=== PATIENT | female | born 1985 | race Caucasian/White ===

== ENCOUNTER → 2017-12-03 | Outpatient (CLI) | payer OTHER ==
[~2017-12-03] MED LIST: ACEASPCAF PO; ACET500 PO; ACYC800 PO; ALBU90I INH; AZIT250 PO; BENTYL10 MG PO; BENTYL20 MG PO; CRUTCH4 USE; CYCL10 PO; Ciprodex Otic7.5 ML RIGHTEAR; Cyclobenzaprine5 MG PO; DEPO; DIPH50 PO; DOXY100 PO; Daypro600 MG PO; Excedrin Extra1 EACH PO; GABA300 PO; GUAI600ER PO; HYDACE5 PO; HYDGUAL120 PO; HYDPAM50 PO; IBUP200; IBUP200 PO; IBUP600; IBUP600 PO; IBUP800 PO; Keflex500 MG PO; MEDR150I; MEDR150I IM; MELO7.5 PO; META800 PO; METO10 PO; METPRE4DP PO; METR500 PO; MULVITMINE PO; Mobic15 MG PO; NAPR375 PO; NAPR500; NAPR500 PO; NAPROXEN; NEOCOLOTSU OT; OXYACE5T PO; PENVK250 PO; PENVK500 PO; PHENA200 PO; PREG50 PO; PROACE100 PO; PROC5 PO; PROCODE120 PO; PROM25 PO; PYRI100 PO; Pepcid40 MG PO; Percocet 5-3251 EACH PO; Phenergan25 M1 PO; Prednisone20 MG PO; Prilosec Otc20 MG PO; ROPI2 PO; RXHYDACE PO; RXTRAM50 PO; Robaxin500 MG PO; SUCR1 PO; SULTRIDS PO; TRAM50 PO; TRAZ50 PO; TYLENOL PRN; Ultram50 MG PO; VALA500 PO; VARE1 PO; VITAMENS; Verotin-Gr Cap1 EACH PO; ZOSTAVAX V19400 UNIT SQ; Zantac150 MG PO; Zithromax250 MG PO; Zofran Odt4 MG SL; Zovirax800 MG PO; [UNRECOGNIZED DRUG - OTHER]; [UNRECOGNIZED DRUG - REMARK]
== END ==
LOC: LAB SHORT 13:48
DX: Z34.03 Encounter for supervision of normal first pregnancy, third trimester (principal)
CPT/HCPCS: 87081; 87653

== ENCOUNTER 2017-12-21 09:25 | Inpatient (IN) | payer OTHER ==
[~2017-12-21] VITALS: Ht 175.3 cm; Wt 67.0 kg
[~2017-12-21 09:25] MED LIST changes: -Percocet 5-3251 EACH PO; -Verotin-Gr Cap1 EACH PO
[2017-12-21 10:49] LABS: BASOPHILS ABSOLUTE AUTO 0.01 K/mm3 (0.00-0.23); BASOPHILS PERCENT AUTO 0 % (0-2); EOSINOPHILS ABSOLUTE AUTO 0.07 K/mm3 (0.00-0.68); EOSINOPHILS PERCENT AUTO 1 % (0-6); Hematocrit 34.5 % (33.0-51.0); IMMATURE GRAN ABSOLUTE AUTO 0.11 K/mm3 (0.00-0.10); IMMATURE GRAN PERCENT AUTO 1 % (0-1); LYMPHOCYTES ABSOLUTE AUTO 1.94 K/mm3 (0.84-5.20); LYMPHOCYTES PERCENT AUTO 15 % (21-46); MONOCYTES ABSOLUTE AUTO 0.74 K/mm3 (0.16-1.47); MONOCYTES PERCENT AUTO 6 % (4-13); Mean Corpuscular HGB 31.9 pg (26.0-34.0); Mean Corpuscular HGB Conc 34.8 g/dL (31.5-36.5); Mean Corpuscular Volume 92 fL (80-100); NEUTROPHILS ABSOLUTE AUTO 10.36 K/mm3 (1.96-9.15); NEUTROPHILS PERCENT AUTO 78 % (41-73); Platelet Count 365 K/mm3 (150-400); RDW Coefficient Variation 13.8 % (11.7-14.2); RDW Standard Deviation 46.5 fL (35.1-46.3); Red Blood Cell Count 3.76 M/mm3 (3.80-5.20); White Blood Cell Count 13.23 K/mm3 (4.00-11.30)
[2017-12-21 11:00] LABS: U Amphetamine Screen Not Detected; U Barbituate Screen Not Detected; U Benzodiazapine Screen Not Detected; U Buprenorphine Screen Not Detected; U Cannabinoids Screen Not Detected; U Cocaine Screen Not Detected; U Methadone Screen Not Detected; U Methamphetamine Screen Not Detected; U Opiates Screen Not Detected; U Oxycodone Screen Not Detected; U Phencyclidine Screen Not Detected; U Propoxyphene Screen Not Detected
[2017-12-21 13:54] LABS: PCO2 Cord - Venous 43.2 mmHg (40-50); pH Umbilical Cord - Venous 7.35 (7.26-7.35)
[2017-12-22 06:23] LABS: Hemoglobin 10.4 g/dL (11.5-16.0); Mean Corpuscular HGB 31.8 pg (26.0-34.0); Mean Corpuscular HGB Conc 34.7 g/dL (31.5-36.5); Mean Corpuscular Volume 92 fL (80-100); Mean Platelet Volume 9.7 fL (9.1-12.4); Platelet Count 334 K/mm3 (150-400); RDW Coefficient Variation 13.5 % (11.7-14.2); RDW Standard Deviation 45.6 fL (35.1-46.3); Red Blood Cell Count 3.27 M/mm3 (3.80-5.20); White Blood Cell Count 17.75 K/mm3 (4.00-11.30)
[2017-12-23] MEDS ORDERED: Percocet 5-3251 EACH PO (13:49)
[2017-12-23] MEDS ORDERED: Verotin-Gr Cap1 EACH PO (13:49)
== END 2017-12-23 15:00 | disposition home or self-care (01) | DRG 766 ==
LOC: BC 09:25
PROVIDERS: Obstetrics & Gynecology
PROC: 10D00Z1 Extraction of Products of Conception, Low, Open Approach (ICD-10-PCS; principal; 2017-12-21 12:00)
DX: O36.5930 Maternal care for other known or suspected poor fetal growth, third trimester, not applicable or unspecified (principal); F17.200 Nicotine dependence, unspecified, uncomplicated; O34.211 Maternal care for low transverse scar from previous cesarean delivery; O69.81X0 Labor and delivery complicated by cord around neck, without compression, not applicable or unspecified; O99.334 Smoking (tobacco) complicating childbirth; Z3A.38 38 weeks gestation of pregnancy; Z37.0 Single live birth
CPT/HCPCS: 36415; 82803; 85025; 85027; 86850; 86900; 86901; 88307; 94660; J0330; J0690; J0694; J0697; J1100; J1885; J2270; J2405; J2590; J2710; J2765; J3010; J7120

== ENCOUNTER 2019-08-03 10:04 | Emergency (ER) | payer OTHER ==
[~2019-08-03] VITALS: Ht 175.3 cm; Wt 57.1 kg
[~2019-08-03 10:04] MED LIST changes: +Percocet 5-3251 EACH PO; +Verotin-Gr Cap1 EACH PO
[2019-08-03] MEDS ORDERED: Bactrim Ds Tab1 EACH PO (10:21)
[2019-08-03] MEDS ORDERED: Ultram50 MG PO (10:21)
== END 2019-08-03 10:31 | disposition home or self-care (01) ==
LOC: ER 10:04
DX: L03.031 Cellulitis of right toe (principal); Z88.0 Allergy status to penicillin; Z88.8 Allergy status to other drugs, medicaments and biological substances; Z79.891 Long term (current) use of opiate analgesic; Z79.899 Other long term (current) drug therapy; F17.200 Nicotine dependence, unspecified, uncomplicated
CPT/HCPCS: 99282

== ENCOUNTER 2019-08-17 17:47 | Emergency (ER) | payer OTHER ==
[~2019-08-17] VITALS: Ht 175.3 cm; Wt 56.2 kg
[~2019-08-17 17:47] MED LIST changes: +Bactrim Ds Tab1 EACH PO
[2019-08-17 18:12] LABS: Source, Urine Clean Catch
[2019-08-17 18:20] LABS: BASOPHILS ABSOLUTE AUTO 0.03 K/mm3 (0.00-0.23); BASOPHILS PERCENT AUTO 0 % (0-2); EOSINOPHILS ABSOLUTE AUTO 0.09 K/mm3 (0.00-0.68); EOSINOPHILS PERCENT AUTO 1 % (0-6); Hematocrit 36.6 % (33.0-51.0); Hemoglobin 12.4 g/dL (11.5-16.0); IMMATURE GRAN ABSOLUTE AUTO 0.02 K/mm3 (0.00-0.10); IMMATURE GRAN PERCENT AUTO 0 % (0-1); LYMPHOCYTES ABSOLUTE AUTO 2.92 K/mm3 (0.84-5.20); LYMPHOCYTES PERCENT AUTO 33 % (21-46); MONOCYTES ABSOLUTE AUTO 0.59 K/mm3 (0.16-1.47); MONOCYTES PERCENT AUTO 7 % (4-13); Mean Corpuscular HGB 31.4 pg (26.0-34.0); Mean Corpuscular HGB Conc 33.9 g/dL (31.5-36.5); Mean Corpuscular Volume 93 fL (80-100); Mean Platelet Volume 9.6 fL (9.1-12.4); NEUTROPHILS PERCENT AUTO 59 % (41-73); Platelet Count 385 K/mm3 (150-400); RDW Coefficient Variation 13.2 % (11.7-14.2); RDW Standard Deviation 45.2 fL (35.1-46.3); Red Blood Cell Count 3.95 M/mm3 (3.80-5.20); White Blood Cell Count 8.95 K/mm3 (4.00-11.30)
[2019-08-17 18:27] LABS: Appearance, Urine Clear (Clear); Blood, Urine 1+ (Neg); Color, Urine Yellow (P-Yellow); Glucose Qualitative, Urine Neg (Neg); Ketones, Urine 1+ (Neg); Leukocyte Esterase, Urine 1+ (Neg); Nitrite, Urine Neg (Neg); Protein, Urine 2+ (Neg); Specific Gravity, Urine 1.025 (1.003-1.022); Urobilinogen, Urine 1+ (Normal)
[2019-08-17 18:37] LABS: Alanine Aminotransfer (ALT/SGP 13 U/L (12-78); Albumin, Blood 4.1 g/dL (3.4-5.0); Albumin/Globulin Ratio 1.4 (0.8-1.8); Alk Phos 50 U/L (50-136); Anion Gap 5 mmol/L (6-16); Aspartate Aminotrans (AST/SGOT 23 U/L (12-37); Bilirubin, Total 0.4 mg/dL (0.1-1.0); Blood Urea Nitrogen 10 mg/dL (8-24); Bun/Creatinine Ratio 15.1 (12.0-20.0); CO2, Blood 22 mmol/L (21-32); Calcium, Blood 9.2 mg/dL (8.5-10.1); Chloride, Blood 110 mmol/L (98-108); Creatinine, Blood 0.66 mg/dL (0.40-1.00); Globulin, Blood 2.9 g/dL (2.2-4.0); Glomerular Filtration Rate >60 (60-); Glucose, Blood 130 mg/dL (70-99); Potassium, Blood 4.1 mmol/L (3.5-5.5); Sodium, Blood 137 mmol/L (136-145)
[2019-08-17 19:28] LABS: Bilirubin, Urine 1+ (Neg)
[2019-08-17 19:31] LABS: Bacteria Few /hpf; Red Blood Cells, Urine 0-2 /hpf (0-2); Squamous Epithelial Cells Rare /hpf (Few)
[2019-08-17 19:32] LABS: Calcium Oxalate Crystals Many /hpf; Mucus Light (0-Heavy)
== END 2019-08-17 21:06 | disposition home or self-care (01) ==
LOC: ER 17:47
PROVIDERS: Physician Assistant
DX: K92.2 Gastrointestinal hemorrhage, unspecified (principal); Z88.0 Allergy status to penicillin; Z88.8 Allergy status to other drugs, medicaments and biological substances; Z79.899 Other long term (current) drug therapy; Z79.891 Long term (current) use of opiate analgesic; F17.200 Nicotine dependence, unspecified, uncomplicated
CPT/HCPCS: 36415; 74176; 80053; 81001; 81025; 82272; 85025; 86850; 86900; 86901; 99284-25

== ENCOUNTER 2020-04-07 16:32 | Inpatient (IN) | payer OTHER ==
[~2020-04-07] VITALS: Ht 175.3 cm; Wt 54.4 kg
[~2020-04-07 16:32] MED LIST changes: +Cleocin HCl150 MG PO
[2020-04-07 18:04] LABS: BASOPHILS ABSOLUTE AUTO 0.03 K/mm3 (0.00-0.23); BASOPHILS PERCENT AUTO 0 % (0-2); EOSINOPHILS ABSOLUTE AUTO 0.01 K/mm3 (0.00-0.68); EOSINOPHILS PERCENT AUTO 0 % (0-6); Hematocrit 34.3 % (33.0-51.0); Hemoglobin 11.4 g/dL (11.5-16.0); IMMATURE GRAN ABSOLUTE AUTO 0.09 K/mm3 (0.00-0.10); IMMATURE GRAN PERCENT AUTO 1 % (0-1); LYMPHOCYTES ABSOLUTE AUTO 1.25 K/mm3 (0.84-5.20); LYMPHOCYTES PERCENT AUTO 7 % (21-46); MONOCYTES ABSOLUTE AUTO 0.76 K/mm3 (0.16-1.47); MONOCYTES PERCENT AUTO 4 % (4-13); Mean Corpuscular HGB 30.5 pg (26.0-34.0); Mean Corpuscular HGB Conc 33.2 g/dL (31.5-36.5); Mean Corpuscular Volume 92 fL (80-100); Mean Platelet Volume 9.5 fL (9.1-12.4); NEUTROPHILS ABSOLUTE AUTO 16.69 K/mm3 (1.96-9.15); NEUTROPHILS PERCENT AUTO 89 % (41-73); Platelet Count 303 K/mm3 (150-400); RDW Coefficient Variation 12.1 % (11.7-14.2); RDW Standard Deviation 41.1 fL (35.1-46.3); Red Blood Cell Count 3.74 M/mm3 (3.80-5.20); White Blood Cell Count 18.83 K/mm3 (4.00-11.30)
[2020-04-07 18:28] LABS: Alanine Aminotransfer (ALT/SGP 16 U/L (12-78); Albumin, Blood 3.6 g/dL (3.4-5.0); Albumin/Globulin Ratio 1.3 (0.8-1.8); Alk Phos 65 U/L (50-136); Anion Gap 7 mmol/L (6-16); Aspartate Aminotrans (AST/SGOT 17 U/L (12-37); Bilirubin, Total 0.3 mg/dL (0.1-1.0); Blood Urea Nitrogen 9 mg/dL (8-24); Bun/Creatinine Ratio 11.8 (12.0-20.0); CO2, Blood 24 mmol/L (21-32); Calcium, Blood 8.5 mg/dL (8.5-10.1); Chloride, Blood 108 mmol/L (98-108); Creatinine, Blood 0.76 mg/dL (0.40-1.00); Globulin, Blood 2.7 g/dL (2.2-4.0); Glomerular Filtration Rate >60 (60-); Glucose, Blood 86 mg/dL (70-99); Potassium, Blood 3.7 mmol/L (3.5-5.5); Sodium, Blood 139 mmol/L (136-145); Total Protein, Blood 6.3 g/dL (6.4-8.2)
[2020-04-07] MEDS ORDERED: METHADONE LIQUID PO (19:41)
--- NOTE | 2020-04-07 22:30 | NUR ---
Patient admitted for rt femur fracture. patient arrived in 10 pain. rt leg is externally rotated, with good cap refill, able to wiggle toes, and with good sensation over leg and toes. No visible bruising or scrapes over rt leg. attempted to place the sheffield's traction on the rt leg, however, patient did not tolerate any movement of her rt leg, will attemp again when pain is better controlled. Oreinted to room and call light in reach.
--- NOTE | 2020-04-08 06:15 | NUR ---
Patient's pain is more controlled this am. she is taking pain medication about ever 2.5 hours now, and her pain is a 5/10. she is able to have full conversations and is no longer crying in pain. no acute changes.
--- NOTE | 2020-04-08 17:51 | NUR ---
SHIFT SUMMARY PT A&OX4, VSS, S/P R HIP NAILING, SURGICAL DRESSING INTACT, WIGGLES TOES, REPOSITIONS SELF WELL. PAIN MANAGED PER EMAR. HAYDER PO, DENIES N&V. DIAL PATENT & DRAINING, STAT LOCK ON, OFF FLOOR. WILL REPORT TO ONCOMING NOC RN.
--- NOTE | 2020-04-08 23:28 | NUR ---
VITALS PT'S HR NOTED TO BE DROPPING TO 47-48 WHILE ASLEEP. SBP LOW 100'S. PT REPORTS SBP NORMALLY AROUND 110-115. PT NOT SURE WHAT RESTING HR NORMALLY IS. CALLED DR. WEBB CONCERNING LOW BP AND HR. DR WEBB REPORTS IF SBP DROPS BELOW 80 TO CALL [facility]ITALS[facility]. OTHERWISE, NO NEW ORDERS. BIOX IN PLACE. O2 94-98% ON RA.
--- NOTE | 2020-04-09 04:55 | NUR ---
SHIFT SUMMARY PT IS A/O X4. PT HAS BEEN REPOSITIONED THROUGHOUT THE NIGHT. R LEG ELEVATED ON PILLOWS. PT HAS HAD LOW BP T/O THE SHIFT. HR ALSO LOW WHEN ASLEEP. SEE VITAL HX AND PREVIOUS NOTES. DISCUSSED PAIN MANAGEMENT WITH PT, FRONT OFFICE ATTENDANT, AND DR. WEBB CONCERNING LOW BP. PAIN SEEMS TO BE MANAGED WELL WITH TORADOL AND FLEXERIL, WITH OXYCODONE PRN. 0.5MG DILUADED GIVEN ONCE FOR BREAKTHROUGH PAIN. SEE EMAR FOR DETAILS. BIOX IN PLACE. NO ACUTE CHANGES OVERNIGHT. ASSISTED WITH ADL'S PRN.
[2020-04-09 09:26] LABS: Hematocrit 27.1 % (33.0-51.0); Hemoglobin 8.9 g/dL (11.5-16.0); Mean Corpuscular HGB 31.6 pg (26.0-34.0); Mean Corpuscular HGB Conc 32.8 g/dL (31.5-36.5); Platelet Count 240 K/mm3 (150-400); RDW Coefficient Variation 12.3 % (11.7-14.2); RDW Standard Deviation 43.8 fL (35.1-46.3); Red Blood Cell Count 2.82 M/mm3 (3.80-5.20); White Blood Cell Count 12.76 K/mm3 (4.00-11.30)
[2020-04-09 09:27] LABS: Mean Corpuscular Volume 96 fL (80-100)
[2020-04-09 09:42] LABS: Albumin, Blood 2.6 g/dL (3.4-5.0); Anion Gap 7 mmol/L (6-16); Blood Urea Nitrogen 10 mg/dL (8-24); Bun/Creatinine Ratio 14.2 (12.0-20.0); CO2, Blood 27 mmol/L (21-32); Calcium, Blood 7.9 mg/dL (8.5-10.1); Chloride, Blood 107 mmol/L (98-108); Creatinine, Blood 0.71 mg/dL (0.40-1.00); Glomerular Filtration Rate >60 (60-); Glucose, Blood 119 mg/dL (70-99); Phosphorus, Blood 2.2 mg/dL (2.5-4.9); Potassium, Blood 3.4 mmol/L (3.5-5.5); Sodium, Blood 141 mmol/L (136-145)
--- NOTE | 2020-04-09 10:16 | NUR ---
DR. WEBB WAS NOTIFIED OF LOW BP. DR. GOMEZ CONSULTED FOR LOW BLOOD PRESSURE. IV FLUIDS STARTED. PT EDUCATED THAT SHE CANNONT HAVE HER METHADONE OR PAIN MEDICATION UNTIL HER BP IMPROVES. LABS ORDERED.
--- NOTE | 2020-04-09 17:59 | NUR ---
SHIFT SUMMARY PT IS POD#1 FROM R HIP REPAIR WITH DR. WEBB. PT HAS BEEN QUITE PAINFUL T/O THE DAY, PAIN HAS BEEN MANAGED WITH FLEXERIL, TORADOL AND METHADONE. PT'S BP HAS BEEN LOW T/O THE DAY SO PAIN MEDICATION HAS BEEN USED CAUTIOUSLY. PT IS ASYMPTOMATIC OF LOW BP. PT IS A 2 PERSON MODERATE ASSIST FOR TRANSFERS. PT IS TOLERATING PO WELL. SHE HAS BEEN ABLE TO VOID SINCE HER CATHETER WAS REMOVED. VSS. WILL MONITOR UNTIL REPORT TO ONCOMING RN.
[2020-04-10 04:00] LABS: Hematocrit 26.3 % (33.0-51.0); Hemoglobin 8.1 g/dL (11.5-16.0)
--- NOTE | 2020-04-10 06:04 | NUR ---
SHIFT SUMMARY LYING 1N CHAIR AT BEDSIDE WITH EYES CLOSED. HAS RESTED IN CHAIR WITH DIFFICULTY, HAD BEEN MEDICATED PER EMAR. LOW BP NOTED THROUGHOUT SHIFT, PT STATES THAT SHE DOES NOT KNOW IF THIS IS NORMAL FOR HER SINCE SHE NEVER CHECKS HER BP. HAS BEEN ABLE TO AMBULATE TO BATHROOM WITH MINIMAL ASSISTANCE. DENIES FURTHER NEEDS OR WANTS AT THIS TIME. SAFETY MEASURES IN PLACE. WILL CONTINUE TO MONITOR AND GIVE HAND OFF TO ONCOMING SHIFT USING SBAR DURING BEDSIDE REPORT.
--- NOTE | 2020-04-10 14:48 | NUR ---
PAIN MANAGEMENT PT IS CONTINUING TO HAVE PAIN MANAGEMENT DIFFICULTIES. HER PAIN IS MANAGED WITH TYLENOL AND ADVIL, FLEXERIL AND OXYCODONE HAVE BEEN USED FOR BREAKTHROUGH PAIN. SHE DOES HAVE GAPS IN PAIN MANAGEMENT, CONCERNS ABOUT INCREASING PAIN MEDICATION R/T LOW BP. PT REPORTS HER SBP NORMALLY IS 115. SHE IS ASYMPTOMATIC OF LOW BLOOD PRESSURE. WILL CONTINUE TO MONITOR.
--- NOTE | 2020-04-10 17:57 | NUR ---
SHIFT SUMMARY PT IS POD#2 FROM A R HIP RODDING WITH DR. WEBB. PAIN HAS BEEN AN ISSUE TODAY. PT IS TAKING TYLENOL, ADVIL, FLEXERIL AND OXYCODONE ALTERNATING FOR PAIN MANAGEMENT. PT'S BP HAS BEEN LOW, SHE IS ONLY GETTING SMALL DOSES OF OXYCODONE AND HER ROUTINE METHADONE DOSE. PT IS PAINFUL WITH MOVEMENT BUT IS MOTIVATED. PT WORKED WITH PT TODAY AND IS A 1 PERSON ASSIST WHEN OOB. PLAN FOR PT TO DISCHARGE HOME TOMORROW WHEN FAMILY IS AVALIABLE TO GET HER WALKER AND HER MEDICATIONS FROM HER PHARMACY. PT IS TOLERATING PO AND VOIDING WELL. BP REMAINS LOW AND PT HAS BEEN ASYMPTOMATIC. VSS. WILL MONITOR UNTIL REPORT TO ONCOMING RN.
--- NOTE | 2020-04-11 06:17 | NUR ---
SHIFT SUMMARY POD 3 R HIP RODDING [id number], VSS. DRESSING UNCHAINGED FROM START OF SHIFT. SMALL AMOUNT SS DRAINAGE. PT MEDICATED FOR PAIN PER EMAR. PT STATES TOLERABLE BUT VERY UNCOMFORTABLE. PT ABLE TO AMBULATE TO BATHROOM WITH MINIMAL ASSIST. EDUCATED PT ON IMPORTANCE OF MAINTAINING ADEQUATE PAIN CONTROL. PT TOLERATING PO WELL. DENIES NAUSEA. PLAN TO WORK WITH PT/OT AND DISCHARGE TODAY.
[2020-04-11] MEDS ORDERED: CYCL10 PO (09:11)
[2020-04-11] MEDS ORDERED: ACET500 PO (09:11)
--- NOTE | 2020-04-11 10:14 | NUR ---
PT DISCHARGED WITH DC INSTRUCTIONS INCLUDING 2 HARD COPIES FOR RX FOR OXYCODONE AND FLEXORIL. WALKER RX CALLED BY DR WEBB TO [place], FAMILY AWARE. PT AMBULATED OUTSIDE WITH WALKER ALL THE WAY FROM HER ROOM OUTSIDE TO RIDE WHERE WILL DRIVE HER HOME. RN ESCORT WITH W/C INCASE SHE WANTED TO RIDE, BUT PT INSISTED ON WALKING AND TOLERATED ACT WELL. PT HAD NO IV. BELONGINGS SENT HOME WITH PT. MEDICATED WITH OXY AND METHADONE JUST BEFORE DC PT REQUEST FOR PAIN MANAGEMENT.
== END 2020-04-11 10:01 | disposition home or self-care (01) | DRG 482 ==
LOC: ER 16:32 → SURS 20:24
PROVIDERS: Emergency Medicine; Internal Medicine; ADMIT Orthopaedic Surgery
PROC: 0QH636Z Insertion of Intramedullary Internal Fixation Device into Right Upper Femur, Percutaneous Approach (ICD-10-PCS; principal; 2020-04-08 08:45)
DX: S72.21XA Displaced subtrochanteric fracture of right femur, initial encounter for closed fracture (principal); W00.2XXA Other fall from one level to another due to ice and snow, initial encounter; Y93.89 Activity, other specified; Y92.830 Public park as the place of occurrence of the external cause; Y99.8 Other external cause status; I95.9 Hypotension, unspecified; D50.9 Iron deficiency anemia, unspecified; E83.39 Other disorders of phosphorus metabolism; E87.6 Hypokalemia
CPT/HCPCS: 36415; 71045; 73502; 80053; 80069; 81025; 82607; 82728; 82746; 83540; 83550; 85014; 85018; 85025; 85027; 94762; 96374-59; 96375-59; 97110; 97116; 97162; 99285-25; C1713; C1769; J0171; J0690; J1100; J1170; J1885; J2250; J2405; J2704; J3010; J7030; J7050; J7060; J7120; U0002

== ENCOUNTER 2022-07-23 11:16 | Emergency (ER) | payer OTHER ==
[~2022-07-23] VITALS: Ht 175.3 cm; Wt 70.3 kg
[~2022-07-23 11:16] MED LIST changes: +METHADONE LIQUID PO
[2022-07-23] MEDS ORDERED: HYDR1TAB94 PO (14:15)
== END 2022-07-23 14:45 | disposition home or self-care (01) ==
LOC: ER 11:16
DX: S52.122A Displaced fracture of head of left radius, initial encounter for closed fracture (principal); S52.132A Displaced fracture of neck of left radius, initial encounter for closed fracture; F17.210 Nicotine dependence, cigarettes, uncomplicated; W01.0XXA Fall on same level from slipping, tripping and stumbling without subsequent striking against object, initial encounter
CPT/HCPCS: 29105; 73080; 73562-RT; 99283-25; A9270

== ENCOUNTER 2023-02-10 12:27 | Emergency (ER) | payer OTHER ==
[~2023-02-10] VITALS: Ht 175.3 cm; Wt 72.6 kg
[~2023-02-10 12:27] MED LIST changes: +HYDR1TAB94 PO
[2023-02-10 14:19] VITALS: BP 122/74
== END 2023-02-10 14:15 | disposition home or self-care (01) ==
LOC: ER 12:27
DX: S00.81XA Abrasion of other part of head, initial encounter (principal); G43.909 Migraine, unspecified, not intractable, without status migrainosus; F17.210 Nicotine dependence, cigarettes, uncomplicated; Z88.0 Allergy status to penicillin; Z88.6 Allergy status to analgesic agent; W18.09XA Striking against other object with subsequent fall, initial encounter
CPT/HCPCS: 70486; 96372; 99283-25; J3010

== ENCOUNTER 2023-03-10 09:44 | Emergency (ER) | payer OTHER ==
[~2023-03-10] VITALS: Ht 175.3 cm; Wt 72.6 kg
[2023-03-10 11:24] LABS: BASOPHILS ABSOLUTE AUTO 0.03 K/mm3 (0.00-0.23); BASOPHILS PERCENT AUTO 0 % (0-2); EOSINOPHILS ABSOLUTE AUTO 0.02 K/mm3 (0.00-0.68); EOSINOPHILS PERCENT AUTO 0 % (0-6); Hemoglobin 14.4 g/dL (11.5-16.0); IMMATURE GRAN ABSOLUTE AUTO 0.04 K/mm3 (0.00-0.10); IMMATURE GRAN PERCENT AUTO 0 % (0-1); LYMPHOCYTES ABSOLUTE AUTO 1.71 K/mm3 (0.84-5.20); LYMPHOCYTES PERCENT AUTO 12 % (21-46); MONOCYTES ABSOLUTE AUTO 0.68 K/mm3 (0.16-1.47); MONOCYTES PERCENT AUTO 5 % (4-13); Mean Corpuscular HGB 31.5 pg (26.0-34.0); Mean Corpuscular HGB Conc 35.1 g/dL (31.5-36.5); Mean Corpuscular Volume 90 fL (80-100); NEUTROPHILS ABSOLUTE AUTO 11.82 K/mm3 (1.96-9.15); NEUTROPHILS PERCENT AUTO 83 % (41-73); Platelet Count 400 K/mm3 (150-400); RDW Coefficient Variation 12.7 % (11.7-14.2); RDW Standard Deviation 41.8 fL (35.1-46.3); Red Blood Cell Count 4.57 M/mm3 (3.80-5.20)
[2023-03-10 11:37] LABS: Albumin, Blood 3.9 g/dL (3.4-5.0); Albumin/Globulin Ratio 1.4 (0.8-1.8); Bilirubin, Total 0.4 mg/dL (0.1-1.0); Bun/Creatinine Ratio 8.8 (12.0-20.0); Creatinine, Blood 0.68 mg/dL (0.40-1.00); Globulin, Blood 2.7 g/dL (2.2-4.0); Potassium, Blood 3.4 mmol/L (3.5-5.5); Total Protein, Blood 6.6 g/dL (6.4-8.2)
[2023-03-10 12:30] VITALS: BP 102/63
[2023-03-10] MEDS ORDERED: PROM12.5S PR (14:24)
[2023-03-10] MEDS ORDERED: ONDA4ODT MM (14:24)
[2023-03-10] MEDS ORDERED: FAMO20 PO (14:24)
[2023-03-10] MEDS ORDERED: PROMETHAZINE12.5 M1 PO (14:24)
== END 2023-03-10 15:02 | disposition home or self-care (01) ==
LOC: ER 09:44
PROVIDERS: Physician Assistant
DX: R10.13 Epigastric pain (principal); R11.2 Nausea with vomiting, unspecified; F17.210 Nicotine dependence, cigarettes, uncomplicated; Z88.0 Allergy status to penicillin; Z88.8 Allergy status to other drugs, medicaments and biological substances
CPT/HCPCS: 80053; 81025; 83690; 83735; 85025; A9270; J1790; J2405; J7030

== ENCOUNTER 2023-08-30 11:38 | Emergency (ER) | payer OTHER ==
[~2023-08-30] VITALS: Ht 175.3 cm; Wt 74.8 kg
[~2023-08-30 11:38] MED LIST changes: +FAMO20 PO; +ONDA4ODT MM; +PROM12.5S PR; +PROMETHAZINE12.5 M1 PO
[2023-08-30 11:43] VITALS: BP 129/82
[2023-08-30] MEDS ORDERED: CYCL10 PO (12:10)
== END 2023-08-30 12:35 | disposition home or self-care (01) ==
LOC: ER 11:38
DX: M54.50 Low back pain, unspecified (principal); G89.29 Other chronic pain; W10.8XXA Fall (on) (from) other stairs and steps, initial encounter; F17.210 Nicotine dependence, cigarettes, uncomplicated; Z88.0 Allergy status to penicillin; Z88.8 Allergy status to other drugs, medicaments and biological substances; Z79.899 Other long term (current) drug therapy
CPT/HCPCS: 96372; 99283-25; A9270; J1885

== ENCOUNTER 2023-09-22 09:08 | Emergency (ER) | payer OTHER ==
[~2023-09-22] VITALS: Ht 175.3 cm; Wt 72.6 kg
[2023-09-22 09:56] VITALS: BP 127/78
[2023-09-22 10:48] LABS: Influenza A, PCR NEGATIVE (NEGATIVE); Influenza B, PCR NEGATIVE (NEGATIVE); Resp Syncytial Virus, PCR NEGATIVE (NEGATIVE); SARS-Cov-2 (COVID-19) PCR, MMC NEGATIVE (NEGATIVE)
[2023-09-22] MEDS ORDERED: GABA300 PO (11:43)
[2023-09-22] MEDS ORDERED: ONDA4ODT MM (11:56)
== END 2023-09-22 12:09 | disposition home or self-care (01) ==
LOC: ER 09:08
PROVIDERS: Physician Assistant
DX: R11.2 Nausea with vomiting, unspecified (principal); F17.210 Nicotine dependence, cigarettes, uncomplicated; M54.9 Dorsalgia, unspecified; G89.29 Other chronic pain; F15.11 Other stimulant abuse, in remission; Z88.0 Allergy status to penicillin; Z11.52 Encounter for screening for COVID-19; Z79.899 Other long term (current) drug therapy; Z88.8 Allergy status to other drugs, medicaments and biological substances
CPT/HCPCS: 0241U; 99283; A9270

== ENCOUNTER 2024-04-10 21:52 | Emergency (ER) | payer OTHER ==
[~2024-04-10] VITALS: Ht 177.8 cm; Wt 63.5 kg
[2024-04-10 21:57] VITALS: BP 126/69
[2024-04-10] MEDS ORDERED: Ondansetron HCl 2 MG / ML 2ML Vial IV ONE ×2 (22:00→22:45)
[2024-04-10 22:21] LABS: BASOPHILS ABSOLUTE AUTO 0.02 K/mm3 (0.00-0.23); BASOPHILS PERCENT AUTO 0 % (0-2); EOSINOPHILS ABSOLUTE AUTO 0.01 K/mm3 (0.00-0.68); EOSINOPHILS PERCENT AUTO 0 % (0-6); Hematocrit 38.7 % (33.0-51.0); Hemoglobin 13.5 g/dL (11.5-16.0); IMMATURE GRAN ABSOLUTE AUTO 0.04 K/mm3 (0.00-0.10); IMMATURE GRAN PERCENT AUTO 0 % (0-1); LYMPHOCYTES ABSOLUTE AUTO 1.52 K/mm3 (0.84-5.20); LYMPHOCYTES PERCENT AUTO 12 % (21-46); MONOCYTES ABSOLUTE AUTO 0.98 K/mm3 (0.16-1.47); MONOCYTES PERCENT AUTO 8 % (4-13); Mean Corpuscular HGB 30.6 pg (26.0-34.0); Mean Corpuscular HGB Conc 34.9 g/dL (31.5-36.5); Mean Corpuscular Volume 88 fL (80-100); Mean Platelet Volume 9.7 fL (9.1-12.4); NEUTROPHILS ABSOLUTE AUTO 10.38 K/mm3 (1.96-9.15); NEUTROPHILS PERCENT AUTO 80 % (41-73); Platelet Count 327 K/mm3 (150-400); RDW Coefficient Variation 12.6 % (11.7-14.2); RDW Standard Deviation 40.8 fL (35.1-46.3); Red Blood Cell Count 4.41 M/mm3 (3.80-5.20); White Blood Cell Count 12.95 K/mm3 (4.00-11.30)
[2024-04-10 22:39] LABS: Albumin, Blood 3.7 g/dL (3.4-5.0); Albumin/Globulin Ratio 1.1 (0.8-1.8); Bilirubin, Total 0.3 mg/dL (0.1-1.0); Bun/Creatinine Ratio 14.1 (12.0-20.0); Calcium, Blood 9.4 mg/dL (8.5-10.1); Creatinine, Blood 0.64 mg/dL (0.40-1.00); Globulin, Blood 3.4 g/dL (2.2-4.0); Potassium, Blood 3.2 mmol/L (3.5-5.5); Total Protein, Blood 7.1 g/dL (6.4-8.2)
[2024-04-10] MEDS ORDERED: Potassium Chloride 20 MEQ TabCR PO ONE (23:20)
[2024-04-10] MEDS ORDERED: Lactated Ringer's 250 ML IV SCH (23:20)
[2024-04-10] MEDS ORDERED: Droperidol 5 mg/2 ml Vial IV ONE (23:25)
[2024-04-11] MEDS ORDERED: ONDA4ODT MM (00:12)
[2024-04-11] MEDS ORDERED: RX Prepack 2 Tabs Ondansetron ODT 4MG UD ONE (00:15)
== END 2024-04-11 00:31 | disposition home or self-care (01) ==
LOC: ER 21:52
PROVIDERS: Emergency Medicine
DX: A08.4 Viral intestinal infection, unspecified (principal); E87.6 Hypokalemia; G43.909 Migraine, unspecified, not intractable, without status migrainosus; F17.210 Nicotine dependence, cigarettes, uncomplicated; Z79.899 Other long term (current) drug therapy; Z88.0 Allergy status to penicillin; Z88.8 Allergy status to other drugs, medicaments and biological substances
CPT/HCPCS: 80053; 85025; 93005; 93010; 96361; 96374; 96375; 99284-25; A9270; J1790; J2405; J7120

== ENCOUNTER → 2024-12-17 | Outpatient (CLI) | payer OTHER ==
[2024-12-17 16:50] LABS: BASOPHILS ABSOLUTE AUTO 0.03 K/mm3 (0.00-0.23); BASOPHILS PERCENT AUTO 1 % (0-2); EOSINOPHILS ABSOLUTE AUTO 0.22 K/mm3 (0.00-0.68); EOSINOPHILS PERCENT AUTO 4 % (0-6); Hematocrit 35.4 % (33.0-51.0); IMMATURE GRAN ABSOLUTE AUTO 0.01 K/mm3 (0.00-0.10); IMMATURE GRAN PERCENT AUTO 0 % (0-1); LYMPHOCYTES ABSOLUTE AUTO 2.42 K/mm3 (0.84-5.20); LYMPHOCYTES PERCENT AUTO 41 % (21-46); MONOCYTES ABSOLUTE AUTO 0.49 K/mm3 (0.16-1.47); MONOCYTES PERCENT AUTO 8 % (4-13); Mean Corpuscular HGB 31.2 pg (26.0-34.0); Mean Corpuscular HGB Conc 33.9 g/dL (31.5-36.5); Mean Corpuscular Volume 92 fL (80-100); Mean Platelet Volume 10.3 fL (9.1-12.4); NEUTROPHILS ABSOLUTE AUTO 2.73 K/mm3 (1.96-9.15); NEUTROPHILS PERCENT AUTO 46 % (41-73); Platelet Count 326 K/mm3 (150-400); RDW Coefficient Variation 13.9 % (11.7-14.2); RDW Standard Deviation 46.9 fL (35.1-46.3); Red Blood Cell Count 3.85 M/mm3 (3.80-5.20)
[2024-12-17 17:11] LABS: Albumin, Blood 3.8 g/dL (3.4-5.0); Albumin/Globulin Ratio 1.4 (0.8-1.8); Bilirubin, Total 0.3 mg/dL (0.1-1.0); Bun/Creatinine Ratio 17.4 (12.0-20.0); Calcium, Blood 8.7 mg/dL (8.5-10.1); Creatinine, Blood 0.69 mg/dL (0.40-1.00); Globulin, Blood 2.7 g/dL (2.2-4.0); Potassium, Blood 4.1 mmol/L (3.5-5.5); Thyroid Stimulating Hormone 0.519 uIU/mL (0.360-4.800); Total Protein, Blood 6.5 g/dL (6.4-8.2)
== END ==
LOC: LAB SHORT 15:30 → LAB 15:30
PROVIDERS: Nurse Practitioner Family
DX: R42 Dizziness and giddiness (principal); R53.81 Other malaise; I95.9 Hypotension, unspecified; R00.1 Bradycardia, unspecified
CPT/HCPCS: 80053; 84443; 84484; 85025